=== PATIENT | male | born 1970 | race Caucasian/White ===

== ENCOUNTER 2020-03-05 08:25 | Emergency (ER) | payer OTHER ==
[~2020-03-05] VITALS: Ht 167.6 cm; Wt 136.4 kg
[~2020-03-05 08:25] MED LIST: ACETAMINOPHEN325 MG NG; ASCORBIC ACID500 MG PO; ASPIRIN 81 MG E81 MG PO; BETAPACE 80 MG80 MG PO; CALCIUM PO; CARDIZEM CD360 MG PO; CIPRO500 MG PO; COZAAR50 MG PO; DOC-Q-LACE100 MG PO; ELIQUIS2.5 MG PO; GLUCOPHAGE1000 MG PO; GLUCOSAMINE & C1 CAP PO; HYDROCHLOROTHIA25 MG PO; HYDROCODONE-APA1 TAB PO; METOPROLOL TART50 MG PO; MS CONTIN30 MG PO; MULTI-DAY VITAM1 TAB PO; NORCO 5/325 TAB1 TA1 PO; PERCOCET 10/3251 TA1 PO; PHENERGAN25 M1 PO; PROAIR HFA8.5 GM INH; SENOKOT-S TABLE1 TAB PO; SORINE80 MG PO; VITAMIN B-1250 MCG PO; XARELTO15 MG PO
[2020-03-05 08:32] VITALS: Ht 167.6 cm; Wt 136.4 kg
[2020-03-05] MEDS ORDERED: K-TAB10 MEQ PO (08:41)
[2020-03-05] MEDS ORDERED: BAYER CHEWABLE81 MG PO (08:41)
[2020-03-05 09:04] LABS: BASOPHILS 0.3 % (0-2); EOSINOPHILS 2.6 % (0-7); HEMATOCRIT 40.3 % (42.0-54.0); HEMOGLOBIN 12.9 g/dL (13.5-17.5); IMMATURE GRANULOCYTES 0.3 % (0-5); MCH 29.5 pg (26.0-34.0); MCV 92.2 fL (80.0-100.0); MEAN PLATELET VOLUME 8.9 fL (7.4-10.4); MONOCYTES 11.5 % (2-11); NEUTROPHILS 80.3 % (40-80); PLATELET COUNT 287 10x3/uL (130-400); RBC 4.37 10x6/uL (4.20-6.10); RDW 15.9 % (11.5-14.5); WBC 9.4 10x3/uL (4.8-10.8)
[2020-03-05 09:21] LABS: ANION GAP 9.8 mmol/L (8-16); CARBON DIOXIDE 31.3 mmol/L (21.0-32.0); CREATININE - SERUM 2.4 mg/dL (0.6-1.3); POTASSIUM - SERUM 3.1 mmol/L (3.5-5.1)
[2020-03-05 09:26] LABS: SPECIFIC GRAVITY 1.005 (1.005-1.020)
[2020-03-05 09:27] LABS: AMORPHOUS SEDIMENT <1+ /lpf (NONE SEEN); BACTERIA FEW /hpf (NEGATIVE); BILIRUBIN NEGATIVE (NEGATIVE); EPITHELIAL CELLS 0-5 /hpf (0-5); GLUCOSE NEGATIVE (NEGATIVE); KETONE NEGATIVE (NEGATIVE); NITRITE NEGATIVE (NEGATIVE); RED CELLS - URINE >50 /hpf (0-5); UROBILINOGEN NORMAL (NORMAL)
[2020-03-05 09:27] LABS: ALBUMIN 3.5 g/dL (3.4-5.0); BILIRUBIN - TOTAL 0.49 mg/dL (0.2-1.3); PROTEIN - SERUM 6.8 g/dL (6.4-8.2)
[2020-03-05 12:49] VITALS: BP 134/71
== END 2020-03-05 12:57 | disposition short-term general hospital (02) ==
LOC: D.ER 08:25
PROVIDERS: Family Medicine
DX: N13.2 Hydronephrosis with renal and ureteral calculous obstruction (principal); N17.9 Acute kidney failure, unspecified; N13.9 Obstructive and reflux uropathy, unspecified; E11.9 Type 2 diabetes mellitus without complications; I10 Essential (primary) hypertension; I48.91 Unspecified atrial fibrillation; Z79.84 Long term (current) use of oral hypoglycemic drugs; R10.9 Unspecified abdominal pain; R11.0 Nausea

== ENCOUNTER → 2020-05-16 07:30 | Outpatient (CLI) | payer OTHER ==
[2020-03-05 08:32] VITALS: BMI 48.5
[~2020-05-16 07:30] MED LIST changes: +BAYER CHEWABLE81 MG PO; +K-TAB10 MEQ PO
--- NOTE | 2020-05-17 09:27 | EC ---
PATIENT:JHONATAN MIGUEL DATE OF SERVICE: 05/16/20 SEX: M MEDICAL RECORD: [id number] DATE OF : 68 LOCATION:[facility] AGE OF PATIENT: 50 ADMISSION DATE: 05/16/20 REFERRING PHYSICIAN: INTERPRETING PHYSICIAN: JHON WRAY MD ECHOCARDIOGRAM REPORT ECHO CHARGES 4 ECHO COMPLETE Date: 05/16/20 CLINICAL DIAGNOSIS: CHF ECHOCARDIOGRAPHIC MEASUREMENTS (adult normal given) AC root (d.<3.7cm) 2.7 cm LV Septum d (<1.2 cm> 1.2 cm Valve Excursion 1.4 cm LV Septum (systole) 1.3 cm Left Atria (s.<4.0cm> 3.8 cm LVPW d(<1.2cm) 0.9 cm RV (d.<2.3cm) 3.2 cm LVPW (sytole) 1.2 cm LV diastole(<5.6CM) 6.6 cm MV E-F(>70mm/sec) cm LV systole 5.2 cm LVOT Diameter 1.9 cm MV exc.(>10mm) cm Est.ejection fraction (50-75%) % DOPPLER: LVIT cm/sec A 57 cm/sec E 69 cm/sec LA cm/sec RVSP 38.0 mmHg LVOT 101 cm/sec AOP1/2T m/s Asc. Ao 144 cm/sec RVOT 49 cm/sec RA cm/sec PA 81 cm/sec AV Gradient Peak 8.3 mmHg AV Mean 4.0 mmHg AV Area 2.2 cm MV Gradient Peak 3.6 mmHg MV Mean 1.3 mmHg MV Area cm COMMENTS: [employer]: [facility] Card Hand: 3 Dr. [place] TAPE# PACS Pericardial Effusion N DATE OF SERVICE: Adequate 2D, color flow imaging, spectral Doppler, and M-Mode. Mild LVH. LV internal dimensions are normal. Wall motion is normal. EF is greater than or equal to 55%. Aortic valve is tricuspid. No evidence of stenosis by Doppler interrogation. Left atrium is normal at 3.8 cm. Mitral valve shows no prolapse. Trace MR. Right-sided chambers are grossly normal. Mild TR. 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
== END | disposition home or self-care (01) ==
LOC: D.ECHO 07:30
PROVIDERS: ATTEND Family Medicine
DX: I50.9 Heart failure, unspecified (principal)

== ENCOUNTER 2021-03-25 11:48 | Emergency (ER) | payer OTHER ==
[~2021-03-25] VITALS: Ht 167.6 cm; Wt 136.4 kg
[2021-03-25 11:50] VITALS: BP 158/68; Ht 167.6 cm; Wt 136.4 kg
[2021-03-25 12:30] LABS: BASOPHILS 0.6 % (0-2); EOSINOPHILS 5.1 % (0-7); HEMATOCRIT 37.8 % (42.0-54.0); HEMOGLOBIN 12.1 g/dL (13.5-17.5); LYMPHOCYTES 20.1 % (15-50); MCH 26.6 pg (26.0-34.0); MCHC 31.9 g/dL (31.0-37.0); MCV 83.3 fL (80.0-100.0); MEAN PLATELET VOLUME 7.2 fL (7.4-10.4); MONOCYTES 13.2 % (2-11); PLATELET COUNT 323 10x3/uL (130-400); RBC 4.54 10x6/uL (4.20-6.10); WBC 4.4 10x3/uL (4.8-10.8)
[2021-03-25 12:43] LABS: ALBUMIN 3.5 g/dL (3.4-5.0); ALKALINE PHOSPHATASE 90 U/L (30-120); ALT (SGPT) 25 U/L (10-68); BILIRUBIN - TOTAL 0.43 mg/dL (0.2-1.3); CALC OSMOLALITY 283 mosm/kg (275-300); CARBON DIOXIDE 37.2 mmol/L (21.0-32.0); CHLORIDE - SERUM 98 mmol/L (98-107); CKMB 2.1 U/L (0.0-3.6); CREATINE KINASE 110 UL (21-232); CREATININE - SERUM 1.1 mg/dL (0.6-1.3); GLUCOSE 144 mg/dL (74-106); MAGNESIUM - SERUM 2.1 mg/dL (1.8-2.4); PROTEIN - SERUM 7.9 g/dL (6.4-8.2); SODIUM 140 mmol/L (136-145); TROPONIN-I 0.024 ng/mL (0.000-0.060); UREA NITROGEN 18 mg/dL (7-18); eGFR NON AFRICAN AMERICAN 75 mL/min (90-120)
[2021-03-25 12:49] LABS: POTASSIUM - SERUM 2.7 mmol/L (3.5-5.1)
[2021-03-25 13:01] LABS: APTT 31.5 SECONDS (22.8-39.4); INR 1.1 (0.85-1.17); PROTIME 13.2 SECONDS (11.6-15.0)
== END 2021-03-25 13:18 | disposition home or self-care (01) ==
LOC: D.ER 11:48
PROVIDERS: Family Medicine
DX: R42 Dizziness and giddiness (principal); R55 Syncope and collapse; I10 Essential (primary) hypertension; E87.6 Hypokalemia; E11.9 Type 2 diabetes mellitus without complications; Z79.84 Long term (current) use of oral hypoglycemic drugs

== ENCOUNTER → 2021-03-31 14:52 | Outpatient (CLI) | payer OTHER ==
[2021-03-25 11:50] VITALS: BMI 48.5
== END | disposition home or self-care (01) ==
LOC: D.US 14:30
PROVIDERS: ATTEND Nurse Practitioner
DX: R00.2 Palpitations (principal); R55 Syncope and collapse